=== PATIENT | female | born 1990 | race Caucasian/White ===

== ENCOUNTER → 2017-08-21 | Outpatient (CLI) | payer BC | LOC: BHSO 09:48 | DX: F33.1 Major depressive disorder, recurrent, moderate (principal) ==

== ENCOUNTER → 2017-09-15 | Outpatient (CLI) | payer BC | LOC: BHSO 09:28 | DX: F41.1 Generalized anxiety disorder (principal) | CPT/HCPCS: G0463 ==

== ENCOUNTER → 2017-10-20 | Outpatient (CLI) | payer BC ==
[~2017-10-20] MED LIST: AVIANE 0.02 MG-1 TAB PO; AZASAN100 MG; AZASAN75 MG; CANASA1000 MG RC; CANASA500 MG RC; CELEXA 20MG20 MG/TAB PO; CELEXA40 MG PO; DESYREL 100MG100 MG PO; ENTOCORT EC3 MG PO; FERROUS SULFATE65 MG PO; FLAGYL250 MG PO; FLOVENT DI50 MCG/Act IH; FOLIC ACID 11 MG/TA1 PO; HUMIRA40 MG/0.1 SC; HUMIRA40 MG/0.8 SQ; IMITREX100 MG PO; IMURAN 50MG TAB50 MG PO; KLOR-CON M2020 MEQ PO; LAMICTAL 100MG100 MG PO; LAMICTAL 25MG T25 MG PO; LEVAQUIN 5500 MG/TA1 PO; MINIPRESS 1M1 MG/CAP PO; NEURONTIN300 MG/CAP PO; NEXIUM 40MG40 MG PO; NORCO 325 MG-51 TAB PO; NUVARING VAG RING VG; NUVARING1 ICR VG; PERCOCET 325 MG1 TA2 PO; PERCR 7.5 PO; PHENERGAN 25 TA25 MG PO; PREDNISONE 5MG5 MG PO; PREDNISONE20 MG PO; PRILOSEC 20MG20 MG PO; PROTONIX 40MG T40 MG PO; SEROQUEL50 MG PO; SPRINTEC 35 MCG1 TAB PO; SULFAZINE500 MG PO; TOPAMAX 25MG25 M1 PO; TOPAMAX50 MG PO; VITAMIN B COMPL1 T16 PO; VITAMIN B COMPL1 TA1 PO; VITAMIN B12100 MCG PO; ZOFRAN8 MG PO; ZYRTEC 10MG10 MG PO
== END ==
LOC: BHSO 14:42
DX: F41.1 Generalized anxiety disorder (principal)
CPT/HCPCS: G0463

== ENCOUNTER 2017-10-21 21:19 | Inpatient (IN) | payer BC ==
[~2017-10-21] VITALS: Ht 165.1 cm; Wt 101.4 kg
[~2017-10-21 21:19] MED LIST changes: -AZASAN75 MG; -LAMICTAL 100MG100 MG PO; -LAMICTAL 25MG T25 MG PO; -LEVAQUIN 5500 MG/TA1 PO; -MINIPRESS 1M1 MG/CAP PO; -PERCOCET 325 MG1 TA2 PO; -PREDNISONE 5MG5 MG PO; -VITAMIN B COMPL1 TA1 PO
[2017-10-21] MEDS ORDERED: TOPAMAX50 MG PO (22:55)
[2017-10-21] MEDS ORDERED: PROTONIX 40MG T40 MG PO (22:55)
[2017-10-21] MEDS ORDERED: FOLIC ACID 11 MG/TA1 PO (22:55)
[2017-10-21] MEDS ORDERED: AZASAN75 MG (22:55)
[2017-10-21] MEDS ORDERED: VITAMIN B COMPL1 TA1 PO (22:56)
[2017-10-21] MEDS ORDERED: ENTOCORT EC3 MG PO (22:56)
[2017-10-21] MEDS ORDERED: SEROQUEL50 MG PO (22:56)
[2017-10-21] MEDS ORDERED: NORCO 325 MG-51 TAB PO (22:57)
[2017-10-21] MEDS ORDERED: NUVARING VAG RING VG (22:57)
[2017-10-21] MEDS ORDERED: PREDNISONE 5MG5 MG PO (22:57)
[2017-10-21 23:41] LABS: COLLECTION METHOD CLEAN CATCH
[2017-10-21 23:47] LABS: MUCOUS Present /lpf; PH 6 (5-8); SQUAMOUS EPITHELIAL 0-2 /hpf; URINE APPEARANCE Hazy; URINE BACTERIA Rare /hpf; URINE BILIRUBIN Negative (NEGATIVE); URINE BLOOD Negative (NEGATIVE); URINE COLOR Yellow; URINE GLUCOSE Negative (NEGATIVE); URINE KETONE Negative (NEGATIVE); URINE LEUKOCYTE ESTERASE Negative (NEGATIVE); URINE NITRATE Negative (NEGATIVE); URINE PROTEIN(semi-quant) Negative (NEGATIVE); URINE RBC 0-2 /hpf; URINE UROBILINOGEN Negative (NEGATIVE)
[2017-10-21 23:51] LABS: GRAN # 5.9 (1.4-6.5); GRAN % 66.3 % (42.2-75.2); HEMATOCRIT 42.4 % (37.0-47.0); HEMOGLOBIN 14.4 g/dl (12.5-16.0); LYMPH # 2.4 (1.2-3.4); LYMPH % 26.3 % (20.0-51.0); MEAN CELL VOLUME 89 fl (80.0-100.0); MEAN CORPUSCULAR HEMOGLOBIN 30 pg (27.0-31.0); MEAN CORPUSCULAR HGB CONC 34 g/dl (33.0-37.0); MEAN PLATELET VOLUME 9.5 fl (7.4-10.4); MONO # 0.6 (0.1-0.6); PLATELET COUNT 296 K/mm3 (130-400); RED BLOOD COUNT 4.78 M/mm3 (4.10-5.30)
[2017-10-22 00:05] LABS: ALANINE AMINOTRANSFERASE 22 U/L (9-52); ALBUMIN 4.1 gm/dL (3.5-5.0); ALKALINE PHOSPHATASE 58 U/L (50-136); ANION GAP 9 mmol/L (7-16); AST,SGOT 13 U/L (15-37); BILIRUBIN,TOTAL 0.4 mg/dL (0.0-1.0); BLOOD UREA NITROGEN 10 mg/dL (7-17); CALCIUM 9.4 mg/dL (8.4-10.2); CARBON DIOXIDE 24 mmol/L (22-30); CHLORIDE 108 mmol/L (98-107); CREATININE, serum 1.08 mg/dL (0.52-1.25); GLUCOSE 102 mg/dL (74-106); LIPASE 32 U/L (23-300); MAGNESIUM 2.3 mg/dL (1.6-2.3); PHOSPHOROUS 2.5 mg/dL (2.5-4.5); SODIUM 141 mmol/L (137-145); TOTAL PROTEIN 7.5 gm/dL (6.4-8.2)
[2017-10-22 00:08] LABS: C-REACTIVE PROTEIN < 0.5 mg/dL (0.0-0.9)
[2017-10-22 03:14] VITALS: BP 129/78; PULSE 65; TEMP 97.6
[2017-10-22 07:34] VITALS: BP 139/88; PULSE 70; TEMP 98
[2017-10-22] MEDS ORDERED: LAMICTAL 25MG T25 MG PO (10:22)
[2017-10-22] MEDS ORDERED: PREDNISONE 5MG5 MG PO (10:31)
[2017-10-22] MEDS ORDERED: ENTOCORT EC3 MG PO (10:32)
[2017-10-22] MEDS ORDERED: LAMICTAL 100MG100 MG PO (10:34)
[2017-10-22] MEDS ORDERED: MINIPRESS 1M1 MG/CAP PO (10:35)
[2017-10-22 12:34] VITALS: BP 139/85; PULSE 65; TEMP 97.9
[2017-10-22 15:52] VITALS: BP 144/89; PULSE 68; TEMP 98.4
[2017-10-22 19:10] VITALS: BP 140/75; PULSE 84; TEMP 97.4
[2017-10-23 00:01] VITALS: BP 139/95; PULSE 64; TEMP 97.3
[2017-10-23 04:57] VITALS: BP 118/62; PULSE 63; TEMP 97.5
[2017-10-23 07:04] LABS: GRAN # 6.7 (1.4-6.5); GRAN % 82.3 % (42.2-75.2); HEMATOCRIT 41.7 % (37.0-47.0); LYMPH # 1.1 (1.2-3.4); LYMPH % 13.7 % (20.0-51.0); MEAN CELL VOLUME 90 fl (80.0-100.0); MEAN CORPUSCULAR HEMOGLOBIN 30 pg (27.0-31.0); MEAN CORPUSCULAR HGB CONC 34 g/dl (33.0-37.0); MEAN PLATELET VOLUME 9.5 fl (7.4-10.4); MONO # 0.3 (0.1-0.6); MONO % 3.5 % (1.7-9.3); PLATELET COUNT 295 K/mm3 (130-400); RED BLOOD COUNT 4.66 M/mm3 (4.10-5.30); REDCELL DISTRIBUTION WIDTH-CV 13.1 % (11.5-14.5)
[2017-10-23 07:27] LABS: CALCIUM 9.5 mg/dL (8.4-10.2); CREATININE, serum 0.83 mg/dL (0.52-1.25); MAGNESIUM 2.3 mg/dL (1.6-2.3); PHOSPHOROUS 3.4 mg/dL (2.5-4.5); POTASSIUM 4.1 mmol/L (3.4-5.0)
[2017-10-23 09:27] VITALS: BP 119/71; PULSE 88; TEMP 97.8
[2017-10-23 12:26] VITALS: BP 133/71; PULSE 112; TEMP 98.3
[2017-10-23 14:59] VITALS: BP 116/68; PULSE 88; TEMP 98.6
[2017-10-23 20:34] VITALS: BP 120/67; PULSE 72; TEMP 98.6
[2017-10-24 00:33] VITALS: BP 130/68; PULSE 57; TEMP 97.7
[2017-10-24 03:57] VITALS: BP 123/63; PULSE 57; TEMP 98.2
[2017-10-24 07:27] LABS: BASO % 0.1 % (0.0-2.0); GRAN % 86.4 % (42.2-75.2); HEMATOCRIT 42.6 % (37.0-47.0); HEMOGLOBIN 14.4 g/dl (12.5-16.0); LYMPH % 10.3 % (20.0-51.0); MEAN CELL VOLUME 89 fl (80.0-100.0); MEAN CORPUSCULAR HEMOGLOBIN 30 pg (27.0-31.0); MEAN CORPUSCULAR HGB CONC 34 g/dl (33.0-37.0); MEAN PLATELET VOLUME 9.5 fl (7.4-10.4); MONO # 0.2 (0.1-0.6); MONO % 2.3 % (1.7-9.3); PLATELET COUNT 278 K/mm3 (130-400); REDCELL DISTRIBUTION WIDTH-CV 13.1 % (11.5-14.5)
[2017-10-24 07:46] LABS: CALCIUM 9.4 mg/dL (8.4-10.2); CREATININE, serum 0.88 mg/dL (0.52-1.25); MAGNESIUM 2.3 mg/dL (1.6-2.3); POTASSIUM 4.1 mmol/L (3.4-5.0)
[2017-10-24 08:26] VITALS: BP 133/76; PULSE 71; TEMP 97.9
[2017-10-24 11:06] VITALS: BP 127/76; PULSE 76; TEMP 97.8
[2017-10-24 15:55] VITALS: BP 129/57; BP 136/87; PULSE 100; PULSE 88; TEMP 97.9; TEMP 98.5
[2017-10-24 19:09] VITALS: BP 143/78; PULSE 101; TEMP 98.2
[2017-10-25 00:27] VITALS: BP 125/78; PULSE 67; TEMP 98.1
[2017-10-25 03:35] VITALS: BP 126/72; PULSE 63; TEMP 98.1
[2017-10-25 07:43] VITALS: BP 136/69; PULSE 58; TEMP 97.9
[2017-10-25 07:46] LABS: BASO % 0.1 % (0.0-2.0); GRAN # 7.1 (1.4-6.5); GRAN % 80.7 % (42.2-75.2); HEMATOCRIT 43.3 % (37.0-47.0); HEMOGLOBIN 14.5 g/dl (12.5-16.0); LYMPH # 1.2 (1.2-3.4); LYMPH % 13.5 % (20.0-51.0); MEAN CELL VOLUME 90 fl (80.0-100.0); MEAN CORPUSCULAR HEMOGLOBIN 30 pg (27.0-31.0); MEAN CORPUSCULAR HGB CONC 34 g/dl (33.0-37.0); MEAN PLATELET VOLUME 9.7 fl (7.4-10.4); MONO # 0.4 (0.1-0.6); MONO % 4.7 % (1.7-9.3); PLATELET COUNT 275 K/mm3 (130-400); RED BLOOD COUNT 4.83 M/mm3 (4.10-5.30); REDCELL DISTRIBUTION WIDTH-CV 13.1 % (11.5-14.5)
[2017-10-25 07:59] LABS: CALCIUM 9.3 mg/dL (8.4-10.2); CREATININE, serum 0.79 mg/dL (0.52-1.25); MAGNESIUM 2.5 mg/dL (1.6-2.3)
[2017-10-25 16:17] VITALS: BP 137/86; PULSE 88; TEMP 98.4
[2017-10-25 20:25] VITALS: BP 127/62; PULSE 99; TEMP 97.3
[2017-10-25 23:20] VITALS: BP 108/51; PULSE 75; TEMP 98.9
[2017-10-26 03:49] VITALS: BP 103/64; PULSE 67; TEMP 97.9
[2017-10-26 07:42] LABS: BASO % 0.1 % (0.0-2.0); GRAN # 7.4 (1.4-6.5); GRAN % 84.3 % (42.2-75.2); HEMATOCRIT 43.7 % (37.0-47.0); HEMOGLOBIN 14.9 g/dl (12.5-16.0); LYMPH % 11.1 % (20.0-51.0); MEAN CELL VOLUME 90 fl (80.0-100.0); MEAN CORPUSCULAR HEMOGLOBIN 31 pg (27.0-31.0); MEAN CORPUSCULAR HGB CONC 34 g/dl (33.0-37.0); MEAN PLATELET VOLUME 9.6 fl (7.4-10.4); MONO # 0.3 (0.1-0.6); MONO % 3.5 % (1.7-9.3); PLATELET COUNT 257 K/mm3 (130-400); RED BLOOD COUNT 4.86 M/mm3 (4.10-5.30)
[2017-10-26 08:00] VITALS: BP 125/66; PULSE 104; TEMP 97.6
[2017-10-26 08:04] LABS: CALCIUM 9.3 mg/dL (8.4-10.2); CREATININE, serum 0.85 mg/dL (0.52-1.25); MAGNESIUM 2.5 mg/dL (1.6-2.3); PHOSPHOROUS 3.4 mg/dL (2.5-4.5); POTASSIUM 4.1 mmol/L (3.4-5.0)
[2017-10-26 11:37] VITALS: BP 126/81; PULSE 103; TEMP 98
[2017-10-26 17:56] VITALS: BP 125/70; PULSE 104; TEMP 98.4
[2017-10-26 19:22] VITALS: BP 124/66; PULSE 94; TEMP 98.3
[2017-10-27 00:37] VITALS: BP 118/65; PULSE 72; TEMP 98.7
[2017-10-27 03:24] VITALS: BP 113/62; PULSE 74; TEMP 97.4
[2017-10-27 06:50] LABS: BASO % 0.2 % (0.0-2.0); GRAN # 7.2 (1.4-6.5); GRAN % 65.3 % (42.2-75.2); HEMATOCRIT 42.1 % (37.0-47.0); LYMPH # 2.7 (1.2-3.4); LYMPH % 24.4 % (20.0-51.0); MEAN CELL VOLUME 90 fl (80.0-100.0); MEAN CORPUSCULAR HEMOGLOBIN 30 pg (27.0-31.0); MEAN CORPUSCULAR HGB CONC 33 g/dl (33.0-37.0); MEAN PLATELET VOLUME 9.7 fl (7.4-10.4); MONO % 8.9 % (1.7-9.3); PLATELET COUNT 248 K/mm3 (130-400); RED BLOOD COUNT 4.69 M/mm3 (4.10-5.30); REDCELL DISTRIBUTION WIDTH-CV 13.1 % (11.5-14.5)
[2017-10-27 06:57] LABS: CREATININE, serum 0.82 mg/dL (0.52-1.25); POTASSIUM 3.8 mmol/L (3.4-5.0)
[2017-10-27 09:47] VITALS: BP 126/61; PULSE 80; TEMP 98.7
[2017-10-27] MEDS ORDERED: LEVAQUIN 5500 MG/TA1 PO (11:51)
[2017-10-27] MEDS ORDERED: PERCOCET 325 MG1 TA2 PO (11:52)
[2017-10-27] MEDS ORDERED: PREDNISONE20 MG PO (11:54)
== END 2017-10-27 12:56 | disposition home or self-care (01) | DRG 387 ==
LOC: COL.ER 21:19 → MEDICAL 10-22 02:15 → OB 10-22 02:15 → MEDICAL 10-22 02:59
PROVIDERS: Emergency Medicine; Internal Medicine; Physician Assistant
DX: K50.011 Crohn's disease of small intestine with rectal bleeding (principal); L27.1 Localized skin eruption due to drugs and medicaments taken internally; T42.6X5A Adverse effect of other antiepileptic and sedative-hypnotic drugs, initial encounter; F41.8 Other specified anxiety disorders
CPT/HCPCS: 99231-AI; 99232-AI; 99233-AI; 99239; G0378; J1170; J1200; J1630; J1650; J1956; J2270; J2405; J2550; J2930; J3010; J7030; J7050; J7120; J7500; J7512; Q9967

== ENCOUNTER 2017-11-06 10:06 | Day surgery (SDC) | payer BC ==
[~2017-11-06] VITALS: Ht 165.1 cm; Wt 101.6 kg
[~2017-11-06 10:06] MED LIST changes: +AZASAN75 MG; +LAMICTAL 100MG100 MG PO; +LAMICTAL 25MG T25 MG PO; +LEVAQUIN 5500 MG/TA1 PO; +MINIPRESS 1M1 MG/CAP PO; +PERCOCET 325 MG1 TA2 PO; +PREDNISONE 5MG5 MG PO; +VITAMIN B COMPL1 TA1 PO
[2017-11-06 10:50] VITALS: BP 135/85; PULSE 104; TEMP 98.3
[2017-11-06] MEDS ORDERED: B-121000 MCG PO (11:10)
[2017-11-06] MEDS ORDERED: IMURAN 50MG TAB50 MG PO (11:12)
[2017-11-06] MEDS ORDERED: CARAFATE 1GM1 G PO (11:14)
[2017-11-06] MEDS ORDERED: ZOFRAN 4MG T4 MG/TAB PO (11:14)
[2017-11-06] MEDS ORDERED: PERCOCET 325 MG1 TA2 PO (11:15)
[2017-11-06] MEDS ORDERED: PREDNISONE20 MG PO (11:15)
[2017-11-06] MEDS ORDERED: STOOL SOFTENER100 M2 PO (11:16)
[2017-11-06 12:10] VITALS: BP 134/86; PULSE 94; TEMP 98
[2017-11-06 12:25] VITALS: BP 137/82; PULSE 96
[2017-11-06 12:40] VITALS: BP 129/82; PULSE 95
[2017-11-06 13:03] VITALS: BP 121/81
== END 2017-11-06 13:14 | disposition home or self-care (01) ==
LOC: SDCO 10:06
DX: K21.0 Gastro-esophageal reflux disease with esophagitis (principal); K59.00 Constipation, unspecified; N10 Acute pyelonephritis; K92.1 Melena; R19.7 Diarrhea, unspecified; N39.0 Urinary tract infection, site not specified; R63.8 Other symptoms and signs concerning food and fluid intake; K50.00 Crohn's disease of small intestine without complications; K56.699 Other intestinal obstruction unspecified as to partial versus complete obstruction; E66.9 Obesity, unspecified; Z68.38 Body mass index [BMI] 38.0-38.9, adult; Z88.0 Allergy status to penicillin; Z88.1 Allergy status to other antibiotic agents; Z79.52 Long term (current) use of systemic steroids
CPT/HCPCS: J2704; J7030

== ENCOUNTER 2017-11-17 12:42 | Inpatient (IN) | payer BC ==
[~2017-11-17] VITALS: Ht 165.1 cm; Wt 104.4 kg
[~2017-11-17 12:42] MED LIST changes: +B-121000 MCG PO; +CARAFATE 1GM1 G PO; +STOOL SOFTENER100 M2 PO; +ZOFRAN 4MG T4 MG/TAB PO
[2017-12-16] VITALS (12 sets, daily range): BP systolic 131–148; BP diastolic 67–89; PULSE 90–120; TEMP 97.6–98.5
[2017-12-16 06:09] LABS: COLLECTION METHOD CLEAN CATCH
[2017-12-16 06:18] LABS: MUCOUS Present /lpf; PH 5 (5-8); URINE APPEARANCE Hazy; URINE BACTERIA Rare /hpf; URINE BILIRUBIN Negative (NEGATIVE); URINE BLOOD Negative (NEGATIVE); URINE COLOR Yellow; URINE GLUCOSE Negative (NEGATIVE); URINE KETONE Negative (NEGATIVE); URINE LEUKOCYTE ESTERASE 1+ (NEGATIVE); URINE NITRATE Negative (NEGATIVE); URINE PROTEIN(semi-quant) Negative (NEGATIVE); URINE UROBILINOGEN Negative (NEGATIVE)
[2017-12-17 02:00] VITALS: BP 117/60; PULSE 92; TEMP 98.9
[2017-12-17 05:07] VITALS: BP 134/71; PULSE 83; TEMP 98.5
[2017-12-17 06:35] LABS: HEMATOCRIT 38.5 % (37.0-47.0); HEMOGLOBIN 13.2 g/dl (12.5-16.0)
[2017-12-17 06:54] LABS: CALCIUM 9.3 mg/dL (8.4-10.2); CREATININE, serum 0.87 mg/dL (0.52-1.25); POTASSIUM 3.6 mmol/L (3.4-5.0)
[2017-12-17 09:35] VITALS: BP 123/66; PULSE 113; TEMP 97.4
[2017-12-17 13:21] VITALS: BP 125/77; PULSE 110; TEMP 98.1
[2017-12-17 17:16] VITALS: BP 137/76; PULSE 86; TEMP 98.2
[2017-12-17 22:18] VITALS: BP 139/70; PULSE 92; TEMP 98.1
[2017-12-18] VITALS (7 sets, daily range): BP systolic 126–140; BP diastolic 72–83; PULSE 70–103; TEMP 97.6–98.6
[2017-12-19 01:39] VITALS: BP 120/68; PULSE 76; TEMP 98.3
[2017-12-19 05:20] VITALS: BP 137/78; PULSE 93; TEMP 98.3
[2017-12-19 07:58] LABS: CALCIUM 9.2 mg/dL (8.4-10.2); CREATININE, serum 0.92 mg/dL (0.52-1.25); POTASSIUM 3.6 mmol/L (3.4-5.0)
[2017-12-19 09:16] VITALS: BP 136/83; PULSE 128; PULSE 80; TEMP 98.2
== END 2017-12-19 12:42 | disposition home or self-care (01) | DRG 330 ==
LOC: INPTSU 12-16 05:38 → SURG 12-16 05:38
PROVIDERS: Surgery
PROC: 8E0W4CZ Robotic Assisted Procedure of Trunk Region, Percutaneous Endoscopic Approach (ICD-10-PCS; 2017-12-16)
PROC: 0DTH4ZZ Resection of Cecum, Percutaneous Endoscopic Approach (ICD-10-PCS; principal; 2017-12-16 07:30)
DX: K50.812 Crohn's disease of both small and large intestine with intestinal obstruction (principal)
CPT/HCPCS: A4314; A9284; J1100; J1650; J1720; J1885; J1956; J2175; J2250; J2405; J2704; J3010; J7120; J7512

== ENCOUNTER → 2018-01-20 | Outpatient (CLI) | payer BC | LOC: BHSO 09:18 | DX: F41.1 Generalized anxiety disorder (principal) | CPT/HCPCS: G0463 ==

== ENCOUNTER → 2018-02-01 | Outpatient (CLI) | payer BC ==
[2018-02-01 17:25] LABS: BASO % 0.4 % (0.0-2.0); EOS # 0.1 (0.0-0.7); EOS % 1.2 % (0-4.0); GRAN # 4.2 (1.4-6.5); GRAN % 60.9 % (42.2-75.2); HEMATOCRIT 40.9 % (37.0-47.0); LYMPH # 1.9 (1.2-3.4); LYMPH % 27.2 % (20.0-51.0); MEAN CELL VOLUME 88 fl (80.0-100.0); MEAN CORPUSCULAR HEMOGLOBIN 30 pg (27.0-31.0); MEAN CORPUSCULAR HGB CONC 34 g/dl (33.0-37.0); MEAN PLATELET VOLUME 9.8 fl (7.4-10.4); MONO # 0.7 (0.1-0.6); PLATELET COUNT 305 K/mm3 (130-400); RED BLOOD COUNT 4.65 M/mm3 (4.10-5.30); REDCELL DISTRIBUTION WIDTH-CV 12.4 % (11.5-14.5)
[2018-02-01 17:39] LABS: BILIRUBIN,TOTAL 0.5 mg/dL (0.0-1.0); C-REACTIVE PROTEIN 0.6 mg/dL (0.0-0.9); CALCIUM 9.4 mg/dL (8.4-10.2); CREATININE, serum 0.96 mg/dL (0.52-1.25); POTASSIUM 3.5 mmol/L (3.4-5.0); TOTAL PROTEIN 7.6 gm/dL (6.4-8.2)
[2018-02-01 17:48] LABS: ERYTHROCYTE SEDIMENTATION RATE 1 mm/hr (0-20)
== END ==
LOC: COL.LAB 16:54
PROVIDERS: Nurse Practitioner Family
DX: K52.9 Noninfective gastroenteritis and colitis, unspecified (principal); Z90.49 Acquired absence of other specified parts of digestive tract
CPT/HCPCS: Q9967

== ENCOUNTER → 2018-03-29 | Outpatient (CLI) | payer BC ==
[~2018-03-29] VITALS: Ht 165.1 cm; Wt 101.0 kg
[~2018-03-29] MED LIST changes: +HCTZ 25MG TAB25 MG PO; +NATURAL POTASS595 MG PO; +PLEXUS PRO BIO 5 PO
[2018-03-29 16:05] VITALS: BP 138/67; PULSE 85; TEMP 98
== END ==
LOC: EUO 14:29
DX: R42 Dizziness and giddiness (principal); E86.0 Dehydration; G43.009 Migraine without aura, not intractable, without status migrainosus
CPT/HCPCS: J1885; J2550; J7030

== ENCOUNTER 2018-03-31 16:19 | Outpatient (CLI) | payer BC ==
[~2018-03-31] VITALS: Ht 165.1 cm; Wt 103.3 kg
[2018-03-31 16:47] VITALS: BP 124/81; PULSE 98; TEMP 98.4
== END 2018-03-31 20:00 | disposition home or self-care (01) ==
LOC: EUO 16:19
DX: G43.709 Chronic migraine without aura, not intractable, without status migrainosus (principal)
CPT/HCPCS: J1885; J2550

== ENCOUNTER → 2018-05-20 | Outpatient (CLI) | payer BC ==
[2018-05-20 13:37] LABS: HEMATOCRIT 40.7 % (37.0-47.0); HEMOGLOBIN 14.2 g/dl (12.5-16.0); MEAN CELL VOLUME 85 fl (80.0-100.0); MEAN CORPUSCULAR HEMOGLOBIN 30 pg (27.0-31.0); MEAN CORPUSCULAR HGB CONC 35 g/dl (33.0-37.0); MEAN PLATELET VOLUME 10.1 fl (7.4-10.4); PLATELET COUNT 288 K/mm3 (130-400); RED BLOOD COUNT 4.81 M/mm3 (4.10-5.30)
[2018-05-20 13:43] LABS: ALBUMIN 4.1 gm/dL (3.5-5.0); BILIRUBIN,TOTAL 0.3 mg/dL (0.0-1.0); CALCIUM 9.3 mg/dL (8.4-10.2); CREATININE, serum 0.94 mg/dL (0.52-1.25); POTASSIUM 3.1 mmol/L (3.4-5.0); TOTAL PROTEIN 7.4 gm/dL (6.4-8.2)
== END ==
LOC: COL.LAB 13:13
DX: N63.0 Unspecified lump in unspecified breast (principal)

== ENCOUNTER 2018-07-21 11:51 | Outpatient (CLI) | payer BC ==
[~2018-07-21] VITALS: Ht 165.1 cm; Wt 99.4 kg
[2018-07-21 12:14] VITALS: BP 138/97; PULSE 106; TEMP 98.5
[2018-07-21] MEDS ORDERED: CATAPRES 0.1MG0.1 MG PO (13:30)
== END 2018-07-21 13:33 | disposition home or self-care (01) ==
LOC: EUO 11:51
DX: E86.0 Dehydration (principal)
CPT/HCPCS: J2550; J7030

== ENCOUNTER → 2018-10-20 | Outpatient (CLI) | payer BC ==
[~2018-10-20] MED LIST changes: +CATAPRES 0.1MG0.1 MG PO
== END ==
LOC: COL.RAD 09:35
DX: N28.89 Other specified disorders of kidney and ureter (principal)

== ENCOUNTER → 2018-11-18 | Outpatient (CLI) | payer BC ==
[2018-11-18 08:52] LABS: BASO % 0.7 % (0.0-2.0); EOS # 0.1 (0.0-0.7); GRAN # 2.6 (1.4-6.5); HEMATOCRIT 41.7 % (37.0-47.0); HEMOGLOBIN 14.4 g/dl (12.5-16.0); LYMPH # 2.9 (1.2-3.4); LYMPH % 48.8 % (20.0-51.0); MEAN CELL VOLUME 90 fl (80.0-100.0); MEAN CORPUSCULAR HEMOGLOBIN 31 pg (27.0-31.0); MEAN CORPUSCULAR HGB CONC 35 g/dl (33.0-37.0); MEAN PLATELET VOLUME 10.3 fl (7.4-10.4); MONO # 0.4 (0.1-0.6); MONO % 6.3 % (1.7-9.3); PLATELET COUNT 290 K/mm3 (130-400); RED BLOOD COUNT 4.65 M/mm3 (4.10-5.30); REDCELL DISTRIBUTION WIDTH-CV 13.6 % (11.5-14.5)
[2018-11-18 09:05] LABS: ALBUMIN 4.6 gm/dL (3.5-5.0); BILIRUBIN,TOTAL 0.6 mg/dL (0.0-1.0); CALCIUM 9.8 mg/dL (8.4-10.2); CHOLESTEROL RISK RATIO 4.3; MAGNESIUM 2.2 mg/dL (1.6-2.3); POTASSIUM 3.5 mmol/L (3.4-5.0); TOTAL PROTEIN 8.4 gm/dL (6.4-8.2)
[2018-11-18 09:36] LABS: THYROID STIMULATING HORMONE 2.33 uIU/mL (0.465-4.680)
[2018-11-19 09:42] LABS: CORTISOL, AM (0800) 7 ug/dL (3-20); DHEA (SULFATE) 38 mcg/dL (96-512); ESTRADIOL 106 pg/mL (()); PROGESTERONE 14.1 ng/mL (()); T3 FREE (TRI-IODOTHYRONINE) 3.5 pg/mL (1.7-3.7)
== END ==
LOC: COL.LAB 11-17 11:47
PROVIDERS: Emergency Medicine
DX: F32.9 Major depressive disorder, single episode, unspecified (principal); E28.310 Symptomatic premature menopause; R68.82 Decreased libido; R61 Generalized hyperhidrosis

== ENCOUNTER 2019-08-01 12:08 | Inpatient (IN) | payer BC ==
[~2019-08-01] VITALS: Ht 162.6 cm; Wt 103.6 kg
[~2019-08-01 12:08] MED LIST changes: +COLACE 100100 MG/CAP PO
[2019-08-02] VITALS (64 sets, daily range): BP systolic 93–179; BP diastolic 50–95; PULSE 69–121; TEMP 97.3–98.1
[2019-08-02] MEDS ORDERED: SEROQUEL 1100 MG/TAB PO (07:48)
[2019-08-02] MEDS ORDERED: CATAPRES 0.1MG0.1 MG PO (07:49)
[2019-08-02] MEDS ORDERED: LAMICTAL150 MG PO (07:49)
[2019-08-02] MEDS ORDERED: EFFEXOR 75M75 MG/TAB PO (07:50)
[2019-08-02] MEDS ORDERED: CONCEPT DHA1 CAP PO (08:06)
[2019-08-02] MEDS ORDERED: MAGNESIUM250 M1 PO (08:08)
[2019-08-02] MEDS ORDERED: MELATONIN5 M1 SL (08:08)
[2019-08-02] MEDS ORDERED: UNISOM25 MG PO (08:09)
[2019-08-02] MEDS ORDERED: CALCIUM 600MG+D1 TAB PO (08:09)
[2019-08-02] MEDS ORDERED: TYLENOL PM EXTR1 TA1 PO (08:10)
[2019-08-02 08:38] LABS: BASO % 0.2 % (0.0-2.0); EOS % 0.3 % (0-4.0); GRAN # 7.2 (1.4-6.5); GRAN % 65.7 % (42.2-75.2); LYMPH # 2.9 (1.2-3.4); LYMPH % 26.4 % (20.0-51.0); MEAN CELL VOLUME 91 fl (80.0-100.0); MEAN CORPUSCULAR HEMOGLOBIN 30 pg (27.0-31.0); MEAN CORPUSCULAR HGB CONC 33 g/dl (33.0-37.0); MEAN PLATELET VOLUME 11.7 fl (7.4-10.4); MONO # 0.7 (0.1-0.6); MONO % 6.8 % (1.7-9.3); PLATELET COUNT 223 K/mm3 (130-400); RED BLOOD COUNT 3.96 M/mm3 (4.10-5.30); REDCELL DISTRIBUTION WIDTH-CV 14.1 % (11.5-14.5)
[2019-08-02 08:42] LABS: HEMATOCRIT 35.9 % (37.0-47.0)
[2019-08-02 10:10] LABS: ALBUMIN 3.7 gm/dL (3.5-5.0); BILIRUBIN,TOTAL 0.4 mg/dL (0.0-1.0); CALCIUM 9.3 mg/dL (8.4-10.2); CREATININE, serum 0.65 (0.52-1.25); POTASSIUM 4.1 mmol/L (3.4-5.0); TOTAL PROTEIN 7.1 gm/dL (6.4-8.2)
[2019-08-02 11:45] LABS: COLLECTION METHOD CLEAN CATCH
[2019-08-02 12:04] LABS: PH 6 (5-8); URINE APPEARANCE Hazy; URINE BACTERIA None Seen /hpf; URINE BILIRUBIN Negative (NEGATIVE); URINE BLOOD 1+ (NEGATIVE); URINE COLOR Yellow; URINE GLUCOSE Negative (NEGATIVE); URINE KETONE 1+ (NEGATIVE); URINE LEUKOCYTE ESTERASE Negative (NEGATIVE); URINE NITRATE Negative (NEGATIVE); URINE PROTEIN(semi-quant) Negative (NEGATIVE); URINE UROBILINOGEN Negative (NEGATIVE)
[2019-08-03] VITALS (8 sets, daily range): BP systolic 114–146; BP diastolic 56–85; PULSE 69–98; TEMP 97.8–98.3
[2019-08-04 07:30] VITALS: BP 135/80; PULSE 91; TEMP 98.2
[2019-08-04] MEDS ORDERED: IBU800 M1 PO (15:30)
[2019-08-04] MEDS ORDERED: PERCOCET 325 MG1 TA2 PO (15:31)
[2019-08-04 16:03] VITALS: BP 137/76; PULSE 96; TEMP 98.3
[2019-08-04 20:00] VITALS: BP 136/79; PULSE 98; TEMP 98.2
[2019-08-05 08:10] VITALS: BP 146/84; PULSE 91; TEMP 98.5
[2019-08-05 12:00] VITALS: BP 135/83; PULSE 93; TEMP 98.4
== END 2019-08-05 15:30 | disposition home or self-care (01) | DRG 788 ==
LOC: LDR 12:08 → OB 08-02 23:00
PROVIDERS: ADMIT Student in an Organized Health Care Education/Training Program
PROC: 10D00Z1 Extraction of Products of Conception, Low, Open Approach (ICD-10-PCS; principal; 2019-08-02)
PROC: 3E033VJ Introduction of Other Hormone into Peripheral Vein, Percutaneous Approach (ICD-10-PCS; 2019-08-02)
DX: O62.1 Secondary uterine inertia (principal); O99.824 Streptococcus B carrier state complicating childbirth; Z3A.41 41 weeks gestation of pregnancy; Z37.0 Single live birth; O99.214 Obesity complicating childbirth; O99.344 Other mental disorders complicating childbirth; F32.9 Major depressive disorder, single episode, unspecified; O16.4 Unspecified maternal hypertension, complicating childbirth; E66.9 Obesity, unspecified; Z90.49 Acquired absence of other specified parts of digestive tract; Z90.89 Acquired absence of other organs
CPT/HCPCS: J1885; J2270; J2405; J2590; J3370; J7050; J7120; J7500

== ENCOUNTER 2020-05-08 18:23 | Emergency (ER) | payer BC ==
[~2020-05-08] VITALS: Ht 162.6 cm; Wt 95.5 kg
[~2020-05-08 18:23] MED LIST changes: +CALCIUM 600MG+D1 TAB PO; +CONCEPT DHA1 CAP PO; +EFFEXOR 75M75 MG/TAB PO; +IBU800 M1 PO; +LAMICTAL150 MG PO; +MAGNESIUM250 M1 PO; +MELATONIN5 M1 SL; +SEROQUEL 1100 MG/TAB PO; +TYLENOL PM EXTR1 TA1 PO; +UNISOM25 MG PO
[2020-05-08 18:32] VITALS: BP 115/82; TEMP 97.5
[2020-05-08 20:52] LABS: BASO % 0.1 % (0.0-2.0); GRAN # 9.6 (1.4-6.5); GRAN % 81.5 % (42.2-75.2); HEMOGLOBIN 15.6 g/dl (12.5-16.0); LYMPH # 1.7 (1.2-3.4); LYMPH % 14.5 % (20.0-51.0); MEAN CELL VOLUME 87 fl (80.0-100.0); MEAN CORPUSCULAR HEMOGLOBIN 30 pg (27.0-31.0); MEAN CORPUSCULAR HGB CONC 34 g/dl (33.0-37.0); MEAN PLATELET VOLUME 10.1 fl (7.4-10.4); MONO # 0.4 (0.1-0.6); MONO % 3.6 % (1.7-9.3); PLATELET COUNT 308 K/mm3 (130-400); RED BLOOD COUNT 5.29 M/mm3 (4.10-5.30); REDCELL DISTRIBUTION WIDTH-CV 12.8 % (11.5-14.5)
[2020-05-08] MEDS ORDERED: EFFEXOR 75M75 MG/TAB PO (20:53)
[2020-05-08 21:01] LABS: ALANINE AMINOTRANSFERASE 15 U/L (4-34); ALBUMIN 4.7 gm/dL (3.5-5.0); ALKALINE PHOSPHATASE 102 U/L (50-136); ANION GAP 12 mmol/L (7-16); AST,SGOT 18 U/L (15-37); BILIRUBIN,TOTAL 0.7 mg/dL (0.0-1.0); BLOOD UREA NITROGEN 15 mg/dL (7-17); CALCIUM 9.7 mg/dL (8.4-10.2); CARBON DIOXIDE 22 mmol/L (22-30); CHLORIDE 105 mmol/L (98-107); CREATININE, serum 0.75 (0.52-1.25); GLUCOSE 117 mg/dL (74-106); LIPASE 28 U/L (23-300); POTASSIUM 4.2 mmol/L (3.4-5.0); SODIUM 139 mmol/L (137-145); TOTAL PROTEIN 8.9 gm/dL (6.4-8.2)
[2020-05-08 21:26] LABS: C-REACTIVE PROTEIN < 0.5 mg/dL (0.0-0.9)
[2020-05-08 21:49] LABS: COLLECTION METHOD CLEAN CATCH
[2020-05-08 22:04] LABS: MUCOUS Present /lpf; PH 6 (5-8); URINE APPEARANCE Hazy; URINE BACTERIA Rare /hpf; URINE BILIRUBIN Negative (NEGATIVE); URINE BLOOD Negative (NEGATIVE); URINE COLOR Yellow; URINE GLUCOSE Negative (NEGATIVE); URINE KETONE Negative (NEGATIVE); URINE LEUKOCYTE ESTERASE Negative (NEGATIVE); URINE NITRATE Negative (NEGATIVE); URINE PROTEIN(semi-quant) 1+ (NEGATIVE); URINE RBC 0-2 /hpf; URINE UROBILINOGEN Negative (NEGATIVE)
[2020-05-08 23:13] VITALS: PULSE 94
== END 2020-05-08 23:13 | disposition home or self-care (01) ==
LOC: COL.ER 18:23
PROVIDERS: Family Medicine
DX: K50.90 Crohn's disease, unspecified, without complications (principal)
CPT/HCPCS: J1100; J1170; J2405; J3010; J7120

== ENCOUNTER 2020-05-11 14:04 | Emergency (ER) | payer BC ==
[~2020-05-11] VITALS: Ht 162.6 cm; Wt 95.5 kg
[2020-05-11 14:09] VITALS: TEMP 97.9
[2020-05-11 15:01] LABS: BASO % 0.2 % (0.0-2.0); GRAN # 9.5 (1.4-6.5); GRAN % 82.8 % (42.2-75.2); HEMATOCRIT 45.8 % (37.0-47.0); LYMPH # 1.7 (1.2-3.4); LYMPH % 14.3 % (20.0-51.0); MEAN CELL VOLUME 86 fl (80.0-100.0); MEAN CORPUSCULAR HEMOGLOBIN 30 pg (27.0-31.0); MEAN CORPUSCULAR HGB CONC 35 g/dl (33.0-37.0); MEAN PLATELET VOLUME 9.3 fl (7.4-10.4); MONO # 0.3 (0.1-0.6); MONO % 2.4 % (1.7-9.3); PLATELET COUNT 272 K/mm3 (130-400); RED BLOOD COUNT 5.33 M/mm3 (4.10-5.30); REDCELL DISTRIBUTION WIDTH-CV 12.3 % (11.5-14.5)
[2020-05-11 15:12] LABS: ALANINE AMINOTRANSFERASE 21 U/L (4-34); ALBUMIN 4.9 gm/dL (3.5-5.0); ALKALINE PHOSPHATASE 103 U/L (50-136); ANION GAP 10 mmol/L (7-16); AST,SGOT 21 U/L (15-37); BILIRUBIN,TOTAL 0.7 mg/dL (0.0-1.0); BLOOD UREA NITROGEN 16 mg/dL (7-17); CALCIUM 9.9 mg/dL (8.4-10.2); CARBON DIOXIDE 28 mmol/L (22-30); CHLORIDE 101 mmol/L (98-107); CREATININE, serum 0.92 (0.52-1.25); GLUCOSE 105 mg/dL (74-106); LIPASE 36 U/L (23-300); SODIUM 139 mmol/L (137-145); TOTAL PROTEIN 8.8 gm/dL (6.4-8.2)
[2020-05-11 15:15] LABS: C-REACTIVE PROTEIN < 0.5 mg/dL (0.0-0.9)
[2020-05-11] MEDS ORDERED: PHENERGAN 25 TA25 MG PO (16:20)
[2020-05-11 16:45] VITALS: BP 141/96; PULSE 84
== END 2020-05-11 16:50 | disposition home or self-care (01) ==
LOC: COL.ER 14:04
PROVIDERS: Nurse Practitioner Primary Care
DX: K50.90 Crohn's disease, unspecified, without complications (principal); F32.9 Major depressive disorder, single episode, unspecified; F41.9 Anxiety disorder, unspecified; Z90.49 Acquired absence of other specified parts of digestive tract; Z90.89 Acquired absence of other organs; Z98.890 Other specified postprocedural states
CPT/HCPCS: J2550; J2930; J3010; J7030

== ENCOUNTER 2021-05-30 09:53 | Inpatient (IN) | payer BC ==
[2021-05-30] VITALS (23 sets, daily range): BP systolic 100–159; BP diastolic 51–95; PULSE 70–121; TEMP 97.7–98.8
[~2021-05-30] VITALS: Ht 162.6 cm; Wt 104.1 kg
--- NOTE | 2021-05-30 10:00 | NUR ---
1000- 39.5 G3L1 here with c/o ctx every 5min since 0100. Ambulatory to LDR5 with spouse. Reports normal movement. Denies any LOF or VB. Changes into clean gown. 1004- EFM explained and placed x2. Assessment completed. VS obtained. SVE 1-2/-2, HONORIO. Patient states she is undecided on whether she desires a tolac vs repeat section. Reviewed labor check process to r/o active labor. 1025- Dr. Donovan updated on patient. See physician notification. POC reviewed with patient. 1130- Dr. Donovan updated on pt. See physician notification. 1155- IV to right hand. Labs obtained. IVF infusing. Consent forms explained and signed. 1240- Abdominal prep completed. Dr. Donovan at bedside and reviews POC with patient and family. 1300- Report to Rc Hernandez RN who assumes care of pt.
[2021-05-30 12:05] LABS: COLLECTION METHOD CLEAN CATCH
[2021-05-30 12:07] LABS: BASO % 0.2 % (0.0-2.0); GRAN # 6.9 (1.4-6.5); HEMOGLOBIN 11.3 g/dl (12.5-16.0); MEAN CELL VOLUME 88 fl (80.0-100.0); MEAN CORPUSCULAR HEMOGLOBIN 29 pg (27.0-31.0); MEAN CORPUSCULAR HGB CONC 33 g/dl (33.0-37.0); MONO # 0.5 (0.1-0.6); MONO % 5.5 % (1.7-9.3); PLATELET COUNT 186 K/mm3 (130-400); RED BLOOD COUNT 3.85 M/mm3 (4.10-5.30); REDCELL DISTRIBUTION WIDTH-CV 14.3 % (11.5-14.5)
[2021-05-30 12:10] LABS: HEMATOCRIT 33.9 % (37.0-47.0)
[2021-05-30 12:13] LABS: PH 7 (5-8); URINE APPEARANCE Clear; URINE BACTERIA None Seen /hpf; URINE BILIRUBIN Negative (NEGATIVE); URINE BLOOD Negative (NEGATIVE); URINE COLOR Yellow; URINE GLUCOSE Negative (NEGATIVE); URINE KETONE 1+ (NEGATIVE); URINE LEUKOCYTE ESTERASE Negative (NEGATIVE); URINE NITRATE Negative (NEGATIVE); URINE PROTEIN(semi-quant) 1+ (NEGATIVE); URINE RBC 0-2 /hpf; URINE UROBILINOGEN Negative (NEGATIVE); URINE WBC 0-2 /hpf
[2021-05-30 12:20] LABS: ALBUMIN 3.8 gm/dL (3.5-5.0); BILIRUBIN,TOTAL 0.7 mg/dL (0.0-1.0); CALCIUM 9.2 mg/dL (8.4-10.2); CREATININE, serum 0.58 (0.52-1.25); POTASSIUM 4.4 mmol/L (3.4-5.0); TOTAL PROTEIN 7.4 gm/dL (6.4-8.2)
[2021-05-30] MEDS ORDERED: PROTONIX 40MG T40 MG PO (12:28)
[2021-05-30] MEDS ORDERED: ZOLOFT 50MG50 MG PO (12:28)
--- NOTE | 2021-05-30 13:00 | NUR ---
1300-Assume care of pt from CESAR Contreras, report received. 1310-Pt uncomfortable with contractions, turned self to L side, FHR not tracing, audible movement noted. Rapid Covid swab obtained and sent to cammy. Harjinder WASHCOAT WIPER in to discuss anesthesia for procedure. 1320-FHR tracing maternal heart rate, monitor adjusted as well as maternal positioning. 1330-Pt off monitors and ambulatory to OR for repeat csection. FOB has been at bedside and accompanies pt to the OR.
--- NOTE | 2021-05-30 14:30 | NUR ---
To PACU via bed, pt alert, no c/o pain. Vitals stable, dressing c/d/i. Fundus firm and D1 from umbilicus. Small quarter sized clots expressed with no free flow noted, peripad placed. IV fluids infusing, ford emptied. Report received from HAKAN Grande.
--- NOTE | 2021-05-30 15:05 | NUR ---
PT TO ROOM 213 WITH FOB AND . REPORT TO CESAR MOBLEY, SHE ASSUMES CARE OF THE PT.
--- NOTE | 2021-05-30 23:00 | NUR ---
CALL TO AGAIN PER PT REQUEST. INADEQUATE PAIN CONTROL. ORDERS PT TO ADD TYLENOL 1000MG PO Q6H PRN, INCREASE OXY DOSE TO 10MG PO Q4H, AND IV MORPHINE 2-5MG Q1H PRN FOR BREAKTHROUGH PAIN. PT REQUESTING TO ATTEMPT TO AMBULATE "THIS WILL MAKE ME FEEL BETTER THAN ANYTHING I THINK." PT ABLE TO ASSIST THIS NURSE TO SIDE OF BED AND STATES AGAIN "I NEED TO GET UP, IT WILL MAKE ME FEEL BETTER." UPON SITTING ON EDGE OF BED PT "FEELS DIZZY" PER REPORT AND NAUSEOUS DUE TO THE INTENSE PAIN. ASSISTED BACK INTO BED AT THIS TIME. COOL WASH CLOTH TO FOREHEAD. IV ZOFRAN AND IV MORPHINE ADMINISTERED AND PT EDUCATED TO REST. PT REPORTS MULTIPLE TIMES SHE IS EXHAUSTED AND HASNT SLEPT TODAY. BABY TO NURSERY PER PARENT REQUEST, THIS NURSE WILL FEED BABY BOTTLE (PER PARENT REQUEST) AND ALLOW PT TO REST UNTIL 0300 AND PAIN MEDICATION TO TAKE EFFECT. VITAL SIGNS STABLE, PT ASSISTED INTO COMFORTABLE POSITION IN BED, CALL LIGHT WITHIN REACH, AND REMAINS AT BEDSIDE. DENIES FURTHER NEEDS AT THIS TIME.
[2021-05-31 03:30] VITALS: BP 144/79; PULSE 98; TEMP 98
--- NOTE | 2021-05-31 03:30 | NUR ---
PT REPORTS FEELING MUCH BETTER AFTER SLEEP. DENIES NAUSEA. PAIN IS "MUCH MORE MANEGABLE", LESS PALE IN APPEARANCE, NO LONGER DIAPHORETIC. PT TO SIDE OF BED TO ALLOW LEGS TO DANGLE. CONTINUE TO DENY DIZZINESS/LIGHTHEADED. FULL WEIGHT BEARING. AMBULATORY TO RESTROOM. 350CC OF CLEAR YELLOW URINE EMPTIED FROM FABIAN PERALTA DC'D. ROXIE CARE PROVIDED. ABDOMINAL INCISION CDI. LOCHIA SMALL WITH NO CLOTS. VITAL SIGNS STABLE. PT REQUESTING TO WALK AROUND ROOM AND TOLERATES WALKING WELL. ASSISTED BACK INTO BED. CALL LIGHT WITHIN REACH. REQUESTS TO SEND BABY BACK TO NURSERY FOR A COUPLE MORE HOURS SHE FEELS SIGNIFICANTLY BETTER AFTER SOME REST. BABY TO NURSERY AT THIS TIME WITH THIS RN. EDUCATED PT THAT I WILL RETURN WITH BABY AROUND 0545 UNLESS BABY IS HUNGRY PRIOR. PT AGREEABLE TO POC.
[2021-05-31] MEDS ORDERED: DAZIDOX10 MG PO (08:39)
[2021-05-31] MEDS ORDERED: TYLENOL 500MG500 MG PO (08:39)
--- NOTE | 2021-05-31 10:25 | NUR ---
Initial visit; Parents thanked Manager Power for offering congratulations and God's blessings for the of their son. Manager Power thanked family for choosing our hospital.
[2021-05-31 10:30] VITALS: BP 149/87; PULSE 105; PULSE 115; TEMP 97.7
[2021-05-31 20:00] VITALS: BP 137/69; PULSE 98; TEMP 98.1
[2021-06-01 08:15] VITALS: BP 124/72; PULSE 97; TEMP 97.7
[2021-06-01] MEDS ORDERED: NEWMANS TOP (08:49)
--- NOTE | 2021-06-01 13:30 | NUR ---
Discharge instructions and follow up care reviewed with pt and at the bedside. Both verbalized an understanding, agreed with the plan and states no questions or concerns at this time.
== END 2021-06-01 14:15 | disposition home or self-care (01) | DRG 787 ==
LOC: LDRO 09:53 → LDR 10:00 → LDRO 11:55 → LDR 11:56 → OB 15:20
PROVIDERS: ADMIT Student in an Organized Health Care Education/Training Program
PROC: 10D00Z1 Extraction of Products of Conception, Low, Open Approach (ICD-10-PCS; principal; 2021-05-30)
DX: O34.211 Maternal care for low transverse scar from previous cesarean delivery (principal); K50.90 Crohn's disease, unspecified, without complications; O99.344 Other mental disorders complicating childbirth; F32.9 Major depressive disorder, single episode, unspecified; O99.214 Obesity complicating childbirth; O13.3 Gestational [pregnancy-induced] hypertension without significant proteinuria, third trimester; O99.62 Diseases of the digestive system complicating childbirth; O77.0 Labor and delivery complicated by meconium in amniotic fluid; Z20.822 Contact with and (suspected) exposure to COVID-19; Z3A.39 39 weeks gestation of pregnancy; Z37.0 Single live birth; Z90.49 Acquired absence of other specified parts of digestive tract; Z88.8 Allergy status to other drugs, medicaments and biological substances; Z88.0 Allergy status to penicillin
CPT/HCPCS: J1580; J1885; J2270; J2405; J2590; J3010; J7120